=== PATIENT | male | born 1950 | race Caucasian/White ===

== ENCOUNTER 2021-06-15 07:23 | Outpatient (CLI) | payer MEDICARE ==
[~2021-06-15] VITALS: Ht 180.3 cm; Wt 86.8 kg
[2021-06-15 08:02] VITALS: BP 157/89; PULSE 78; TEMP 98.4
[2021-06-15] MEDS ORDERED: COREG 3.123.125 MG/T PO (08:10)
[2021-06-15] MEDS ORDERED: IRON TABLETS325 MG PO (08:11)
[2021-06-15] MEDS ORDERED: MOTRIN 600600 MG/TAB PO (08:11)
[2021-06-15] MEDS ORDERED: PRINZIDE 25 MG-1 TAB PO (08:13)
[2021-06-15] MEDS ORDERED: PROTONIX 40MG T40 MG PO (08:13)
[2021-06-15] MEDS ORDERED: GLUCOPHAGE1000 MG PO (08:13)
[2021-06-15] MEDS ORDERED: PRAVACHOL 20MG20 MG PO (08:14)
[2021-06-15] MEDS ORDERED: PREDNISONE 2.52.5 MG PO (08:14)
[2021-06-15 08:19] LABS: HEMOGLOBIN 11.2 g/dl (13.5-18.0); MEAN CELL VOLUME 85 fl (80.0-100.0); MEAN CORPUSCULAR HEMOGLOBIN 26 pg (27.0-31.0); MEAN CORPUSCULAR HGB CONC 31 g/dl (33.0-37.0); MEAN PLATELET VOLUME 9.7 fl (7.4-10.4); PLATELET COUNT 278 K/mm3 (130-400); RED BLOOD COUNT 4.28 M/mm3 (4.20-5.60); REDCELL DISTRIBUTION WIDTH-CV 17.2 % (11.5-14.5)
[2021-06-15 08:20] LABS: HEMATOCRIT 36.5 % (42.0-52.0)
[2021-06-15 08:21] LABS: CALCIUM 8.6 mg/dL (8.4-10.2); CREATININE, serum 0.7 (0.66-1.25); POTASSIUM 3.8 mmol/L (3.4-5.0)
[2021-06-15 08:22] LABS: PROTHROMBIN TIME 11.1 SECONDS (9.7-12.8)
[2021-06-15 09:35] VITALS: BP 128/82; PULSE 78
--- NOTE | 2021-06-15 09:35 | NUR ---
report from Jaquelin QUIGLEY, pt is awake and alert, hob elevated. takes coffee. sister in room. Pt has no c/o
[2021-06-15 09:55] VITALS: BP 127/81; PULSE 80
--- NOTE | 2021-06-15 10:10 | NUR ---
Dr Mason into talk with pt on results of test. IV dc'd intact. pt dressed and up in room.
--- NOTE | 2021-06-15 10:25 | NUR ---
reviewed discharge inst. with pt on moderate sedation precautions, no new RX, has next appt set up in [place]. Pt discharged via w/c to car with sister
== END 2021-06-15 10:25 | disposition home or self-care (01) ==
LOC: COL.RAD 07:23
PROVIDERS: Internal Medicine Cardiovascular Disease
DX: I31.3 Pericardial effusion (noninflammatory) (principal)
CPT/HCPCS: J2704